=== PATIENT | female | born 1940 | race Caucasian/White ===

== ENCOUNTER 2016-10-20 21:18 | Inpatient (IN) | payer MEDICARE ==
[~2016-10-20] VITALS: Ht 172.7 cm; Wt 92.0 kg
--- NOTE | ~2016-10-20 | HP ---
PATIENT'S NAME: MARIELOS RICHARDS [facility] AGE: 76 Y [address] 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 She complains of pain isolated to the right hip. Abrasions have been noted at her right elbow, but she denies pain in her right elbow and notes that she has full painless unrestricted active range of motion of the right elbow. She denies numbness or paresthesias in her right foot. She denies history of preexisting pain at the right hip. At baseline, she lives independently and functions independently. She never requires an assistive device for ambulation. She denies head trauma or loss of consciousness. She denies pain in her other 3 extremities as a result of this injury. ACTIVE MEDICAL PROBLEMS: Hypertension, stage III renal insufficiency (attributed to her hypertension). MEDICATIONS: As listed on her chart. ALLERGIES: NO KNOWN DRUG ALLERGIES. PAST SURGICAL HISTORY: Appendectomy, cholecystectomy, removal of unspecified cyst from the right side of her cervical spine, and D and C. REVIEW OF SYSTEMS: She denies history of diabetes mellitus. She denies history of deep venous thrombosis or pulmonary embolism. She denies head trauma or loss of consciousness. SOCIAL HISTORY: Lives independently. Lives alone. Does not require an assistive device for ambulation. PHYSICAL EXAMINATION: GENERAL: Alert, oriented, well-hydrated, well-nourished, pleasant cooperative female. She is a reliable historian. She is in no distress. PATIENT'S NAME: MARIELOS RICHARDS [facility] AGE: 76 Y [address] ROOM: [place] [address] LOCATION: CU ADMIT DATE: 10/20/2016 History & Physical DISCHARGE DATE: FAMILY PHYSICIAN: June Carreno MD ATTENDING PHYSICIAN: June Carreno MUSCULOSKELETAL: There are superficial abrasions over the right elbow. There is moderate protuberance at the olecranon. The patient states this is chronic. There is no tenderness at the olecranon. There is painless unrestricted active range of motion of the right elbow with no crepitation. The right lower extremity is shortened and externally rotated versus the left. There is pain with passive range of motion of the right hip. There is tenderness at the right hip. There is no pain with passive range of motion or tenderness at the left hip. There is no tenderness at either knee. She is able to actively dorsiflex and plantar flex the right ankle with 4/5 motor strength. 1+ dorsalis pedis pulse at the right foot. Sensation to light touch is intact throughout the right foot. Painless unrestricted active range of motion of the cervical spine. RADIOGRAPHS: Three views of the right hip demonstrate an intertrochanteric fracture. The fracture appears somewhat transversely oriented. There is no hardware. There is no lytic lesion. There is moderate displacement. The fracture does not appear to extend into the subtrochanteric region or the femoral neck. There is no significant right hip joint space narrowing. IMPRESSION: Right hip intertrochanteric fracture, renal insufficiency, and hypertension. RECOMMENDATIONS: I have discussed the etiology and natural history of this condition. I have discussed the operative and nonoperative options. I have recommended open reduction and internal fixation with an intramedullary device. I have explained there is an outside chance that a plate and screw construct may be warranted. I have discussed the technical aspects of surgery as well as risks and limitations thereof. We have specifically reviewed risks and implications of infection, deep venous thrombosis, pulmonary embolism, mortality, malunion, nonunion, neurovascular complications, blood transfusion risks, and the potential need for salvage with hip arthroplasty. The patient has been placed at bedrest. Mechanical DVT prophylaxis and incentive spirometry have been initiated. I have consulted the patient's primary care physician, Dr. Carreno, for preoperative medical clearance, preoperative medical optimization, and perioperative medical management. I have emphasized the need for close clinical and radiographic followup and the need for restricted weightbearing for at least 2 months. All of the PATIENT'S NAME: MARIELOS RICHARDS [facility] AGE: 76 Y [address] ROOM: [id number] [place] [id number] LOCATION: [facility] ADMIT DATE: 10/20/2016 History & Physical DISCHARGE DATE: FAMILY PHYSICIAN: June Carreno MD ATTENDING PHYSICIAN: June Carreno patient's questions and concerns were answered to her satisfaction. MD CY RAMIREZ/modl /[id number] D: [id number] T: [id number] HISTORY & PHYSICAL
--- NOTE | ~2016-10-20 | CON ---
PATIENT'S NAME: MARIELOS CHNA [facility] AGE: 76 Y [address] ROOM: [place] [address] LOCATION: GICU ADMIT DATE: 10/20/2016 Consultation DISCHARGE DATE: FAMILY PHYSICIAN: June Carreno MD ATTENDING PHYSICIAN: June Carreno REFERRING PHYSICIAN: Benita Umanzor CHIEF COMPLAINT: Right hip pain. HISTORY OF PRESENT ILLNESS: The patient is a 76-year-old female, who presents to the emergency room after having a fall at home while taking out the trash and landing on her right hip. She developed pain in the right hip area instantaneously and was unable to bear weight on it. She has called the ambulance and the ambulance arrived to get her and brought her to [facility] for further evaluation. She had no head injury. No loss of consciousness. She did have some right elbow pain, but no other associated injuries. She was living at home and functioning independently prior to this. PAST MEDICAL HISTORY: 1. Chronic kidney disease, stage 3. 2. Hypertension. 3. Depression. 4. History of menopausal syndrome. 5. Anxiety. 6. Hyperlipidemia. 7. Osteopenia. MEDICATIONS: 1. Lipitor 20 mg daily. 2. Prilosec 40 mg daily. 3. Restasis eyedrops daily. 4. Zoloft 100 mg daily. 5. Amlodipine 10 mg daily. 6. Lasix 40 mg daily. 7. Iron 325 mg daily. 8. Losartan 50 mg daily. 9. Vitamin D3 daily. 10. Multivitamin daily. PAST SURGICAL HISTORY: Status post cholecystectomy and status post cyst removal. PATIENT'S NAME: MARIELOS CHAN [facility] AGE: 76 Y [address] ROOM: [id number] [place] [address] LOCATION: GICU ADMIT DATE: 10/20/2016 Consultation DISCHARGE DATE: FAMILY PHYSICIAN: June Carreno MD ATTENDING PHYSICIAN: June Carreno ALLERGIES: NO MEDICAL ALLERGIES. REVIEW OF SYSTEMS: GENERAL: No recent weight gain or weight loss. HEENT: Eyes: Vision normal. Hearing is normal. Oropharynx: Denies any odynophagia or dysphagia. CARDIOVASCULAR: No chest pain. No palpitations. RESPIRATORY: No shortness breath, PND, or orthopnea. GASTROINTESTINAL: No constipation, diarrhea, or dark black stools. PSYCHIATRIC: History of depression and anxiety. FAMILY HISTORY: Positive for heart disease, hypertension, and thyroid disorders. SOCIAL HISTORY: The patient does not use alcohol, does not smoke, and does have caffeine on a daily basis. PHYSICAL EXAMINATION: VITAL SIGNS: Weight 97.5, blood pressure is 205/102 initially now is normalized. Respirations 20, pulse 82, temperature 98.1, and O2 saturation 98%. GENERAL: A pleasant female, appears to be in mild distress, secondary to pain. HEENT: Head is atraumatic and normocephalic. Oropharynx is clear. NECK: There is no adenopathy. HEART: Regular rate and rhythm. LUNGS: Clear to auscultation bilaterally. ABDOMEN: Bowel sounds are positive. Soft, nontender, and nondistended. EXTREMITIES: No cyanosis, clubbing, or edema. Obvious pain with movement of her right lower extremity. NEUROLOGIC: Alert and oriented x3. No focal deficits. LABORATORY DATA AND X-RAY DATA: EKG shows no acute abnormalities. X-ray of the right leg and hip shows right intertrochanteric fracture present with displacement noted. CBC unremarkable. CMP: Potassium of 3.5 and creatinine 1.8. GFR of 27, otherwise unremarkable. ASSESSMENT AND PLAN: 1. Right hip intertrochanteric fracture. The patient will be under the care of Dr. Do for surgery. She is okay to proceed with the surgery. She will be followed by Dr. Carreno in the a.m. 2. Chronic renal disease, it is stable at this point. No current changes. 3. Hypertension, stable. PATIENT'S NAME: MARIELOS CHAN [facility] AGE: 76 Y [address] ROOM: [id number] [place], [place] [address] LOCATION: [facility] ADMIT DATE: 10/20/2016 Consultation DISCHARGE DATE: FAMILY PHYSICIAN: June Carreno MD ATTENDING PHYSICIAN: June Carreno 4. Depression and anxiety, stable. 5. Hyperlipidemia, stable. LUIZA BUI MD CSM/noreen /[id number] d: 10/21/16 1333 t: 10/28/16 2223, CONSULTATION REPORT
--- NOTE | ~2016-10-20 | OR ---
PATIENT'S NAME: MARIELOS CHAN [facility] AGE: 76 Y [address] ROOM: [place] [address] LOCATION: [facility] ADMIT DATE: 10/20/2016 OR/Procedure Report DISCHARGE DATE: FAMILY PHYSICIAN: June Carreno MD ATTENDING PHYSICIAN: June Carreno SURGEON: Blanco Do MD LIBRARY MEDIA ASSISTANT: David Velázquez, PRODUCTION ASSEMBLY OPERATOR/[facility]. DATE OF PROCEDURE: 10/21/2016 PREOPERATIVE DIAGNOSIS: Intertrochanteric fracture, right hip. POSTOPERATIVE DIAGNOSIS: Intertrochanteric fracture, right hip. PROCEDURE PERFORMED: Open reduction and internal fixation of right hip intertrochanteric fracture with intramedullary device (gamma nail). ANESTHESIA: Spinal. ESTIMATED BLOOD LOSS: Less than 100 cubic centimeters. IMPLANTS: [employer]s 11 mm x 125-degree 235 mm right trochanteric femoral nail with 38 mm distal interlocking screw and 95 mm lag screw. DRAINS: None. SPECIMEN: None. COMPLICATIONS: None. INDICATION FOR PROCEDURE: Please refer to my separately dictated consultation note. The patient presents with a right hip intertrochanteric fracture. Operative and nonoperative options have been reviewed. Potential adverse sequelae of the injury itself have been reviewed. Risks, benefits, limitations, and indications for surgery have been thoroughly reviewed and informed consent has been granted. We have specifically reviewed risks and implications of the following: infection, malunion, nonunion, deep venous thrombosis, pulmonary embolism, mortality, neurovascular complications, blood transfusion risks, decubitus ulcer formation, pneumonia, avascular necrosis, and the potential need for further surgery (including the potential need for salvage with hip hemiarthroplasty versus total hip arthroplasty). We have discussed the necessity for 2 months of restricted weightbearing postoperatively. A preoperative internal medicine consultation has been obtained, and the patient has been medically cleared for surgery. DESCRIPTION OF PROCEDURE: The patient was positioned supine on the fracture PATIENT'S NAME: MARIELOS CHAN [facility] AGE: 76 Y [address] ROOM: [place] [address] LOCATION: [facility] ADMIT DATE: 10/20/2016 OR/Procedure Report DISCHARGE DATE: FAMILY PHYSICIAN: June Carreno MD ATTENDING PHYSICIAN: June Carreno table after administration of anesthesia and prophylactic antibiotics. The correct side and anticipated procedure were confirmed via a verbal timeout including myself, the processing associate, and the circulating nurse. A well-padded groin post was placed. Both feet and ankles were well padded. The left foot was placed into a stirrup-type leg murphy. The right foot was placed into a traction boot. Under fluoroscopic guidance, gentle longitudinal traction and internal rotation were applied across the fracture site through the right foot until a suitable reduction had been confirmed under AP and lateral fluoroscopic imaging. The lateral aspect of the right hip and thigh were scrubbed, prepped, and draped with vigilant sterile technique. The tip of the right greater trochanter was approached through a 5 cm direct lateral longitudinal incision. The iliotibial band was sharply divided longitudinally in line with the overlying skin incision. The tip of the right greater trochanter was palpated, and a cannulated awl was utilized to access the intramedullary canal of the proximal femur through the tip of the right greater trochanter. A ball tipped guidewire was placed through the awl and across the fracture site under fluoroscopic guidance, and the awl was subsequently removed. The cannulated entrance reamer was utilized through the appropriate soft tissue guide. The gamma nail was seated to the appropriate depth over the guidewire, and the guidewire was extracted. Fluoroscopic imaging confirmed appropriate position of the gamma nail. The outrigger guide and guide cannula were subsequently utilized to place a threaded-tipped guidewire centrally within the right femoral head and neck through a separate direct lateral 2 cm longitudinal incision. Appropriate position of the guidewire was confirmed under AP and lateral fluoroscopic imaging. Appropriate depth for the lag screw was measured. The cannulated reamer was set to the appropriate depth and fully seated through the appropriate soft tissue guide. The lag screw was seated to the appropriate depth under AP and lateral fluoroscopic guidance. The anti-rotational set screw was deployed. The outrigger guide and cannula were subsequently utilized to place the distal interlocking screw through a separate 5 mm direct lateral longitudinal incision. AP, lateral, and oblique fluoroscopic imaging of the right hip and right proximal femur confirmed appropriate position of all hardware and maintenance of an appropriate reduction of the fracture. Each of the 3 incisions was thoroughly irrigated with bacteriostatic saline PATIENT'S NAME: MARIELOS CHAN [facility] AGE: 76 Y [address] ROOM: [facility] [place], [place] [address] LOCATION: [facility] ADMIT DATE: 10/20/2016 OR/Procedure Report DISCHARGE DATE: FAMILY PHYSICIAN: June Carreno MD ATTENDING PHYSICIAN: June Carreno. The fascia was closed with simple deep interrupted 0 Vicryl sutures. Each of the incisions was closed with superficial buried interrupted 2-0 Vicryl sutures and surgical traci. The dressings consisted of Xeroform gauze, sterile gauze, and occlusive tape. There were no complications. The patient was carefully transferred off the fracture table and transported to the postanesthesia care unit in stable condition. MD CY RAMIREZ/noreen /[id number] d: 10/21/16 2138 t: 10/31/16 0754, OPERATIVE SUMMARY
--- NOTE | ~2016-10-20 | DS ---
PATIENT'S NAME: MARIELOS CHAN [facility] AGE: 76 Y [address] ROOM: [place] [address] LOCATION: [facility] ADMIT DATE: 10/20/2016 Discharge Summary DISCHARGE DATE: 10/24/2016 FAMILY PHYSICIAN: June Carreno MD ATTENDING PHYSICIAN: June Carreno PRIMARY DIAGNOSIS: Intertrochanteric fracture of the right hip. SECONDARY DIAGNOSES: 1. Hypertension. 2. Chronic kidney disease stage 3. PROCEDURE PERFORMED: Open reduction and internal fixation of the right hip intertrochanteric fracture with intramedullary device. 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 We have been asked to treat her right hip fracture. Please refer to her consultation note as well as her admission history and physical. HOSPITAL COURSE: The patient underwent the above specified procedure on 10/21/2016 without complication. Spinal anesthesia was utilized. She received 24 hours of perioperative prophylactic antibiotics. She remained hemodynamically stable and neurovascularly intact throughout her entire hospital course. Her postoperative deep vein thrombosis prophylaxis consisted of Xarelto, early mobilization, and pneumatic compression devices. She received daily physical therapy for gait training and transfer training and progressed decently in physical therapy. On her date of discharge, October 24, 2016, incisions of the hip were healing well and showed no signs of infection. DISPOSITION: [facility]. DISCHARGE DIET: Regular diet. DISCHARGE ACTIVITY: She is to be strict toe-touch weightbearing of her right lower extremity. There is to be no right hip strengthening or range of motion exercises. There is to be no dressing changes. She is to notify Dr. Rowland immediately if she experiences increased pain, fevers, chills, erythema, or drainage. DISCHARGE MEDICATIONS: 1. Xarelto 10 mg, one tab p.o. daily, for 12 days for postoperative DVT prophylaxis. 2. [place] 5/325 mg 1 to 2 tabs p.o. every 4 hours p.r.n. for pain. PATIENT'S NAME: MARIELOS CHAN [facility] AGE: 76 Y [address] ROOM: [place] [address] LOCATION: [facility] ADMIT DATE: 10/20/2016 Discharge Summary DISCHARGE DATE: 10/24/2016 FAMILY PHYSICIAN: June Carreno MD ATTENDING PHYSICIAN: June Carreno DISCHARGE INSTRUCTIONS: She was then instructed to continue all her other preadmission medications as instructed by her Internal Medicine doctor. FOLLOWUP APPOINTMENT: Followup appointment is to be with Dr. Rowland's Office on 10/31/2016 for her initial postoperative evaluation with right hip x-rays at that time. STEFAN PERALES PA-C FOR RAMY ROWLAND MD SMW/modl /[id number] d: 11/08/162012 t: 11/22/16 1150, DISCHARGE SUMMARY
--- NOTE | ~2016-10-20 | ER ---
PATIENT'S NAME: MARIELOS CHAN [facility] AGE: 76 Y [address] ROOM: [id number] [place], [place] [id number] LOCATION: GI ADMIT DATE: 10/20/2016 ER/Outpatient Report DISCHARGE DATE: FAMILY PHYSICIAN: June Carreno MD ATTENDING PHYSICIAN: June Carreno Time of Arrival: 2118 hours. Time of Exam: 2126 hours. CHIEF COMPLAINT: Right hip pain. HISTORY OF PRESENT ILLNESS: The patient states just prior to arrival she was taking out the trash when she twisted and fell landing on her right hip. She has pain in the right hip area and is unable to bear weight on it. She did arrive per [facility] ambulance. She has a pillow under the right knee area to give the leg some support. IV was started en route. She denies any other injury with the fall, did not hit her head, did not have any loss of consciousness. ALLERGIES: SHE HAS NO KNOWN ALLERGIES. CURRENT MEDICATIONS: On the chart and reviewed by me. PAST MEDICAL HISTORY: Hypertension, elevated cholesterol, and chronic kidney disease. PAST SURGERIES: Cholecystectomy, D and C, and cervical biopsy. SOCIAL HISTORY: She lives in her own home. Denies use of tobacco, drugs, or alcohol. REVIEW OF SYSTEMS: All negative other than those mentioned in the HPI. PHYSICAL EXAMINATION: VITAL SIGNS: She weighed 97.5 kg. Blood pressure initially was 205/102, pulse of 82, respirations 20, temperature of 98.1 tympanic, and O2 saturation was 98% on room air. GENERAL: She is awake, alert, and oriented x4. SKIN: Hurst, warm, and dry. RESPIRATIONS: Even and nonlabored. Lung sounds are clear throughout. PATIENT'S NAME: MARIELOS CHAN [facility] AGE: 76 Y [address] ROOM: [id number] [place] [address] LOCATION: GICU ADMIT DATE: 10/20/2016 ER/Outpatient Report DISCHARGE DATE: FAMILY PHYSICIAN: June Carreno MD ATTENDING PHYSICIAN: June Carreno HEART: Regular rate and rhythm. ABDOMEN: Soft and nondistended. Bowel sounds are present. MUSCULOSKELETAL: She does have an abrasion to the right elbow area. Positive radial and ulnar pulses. Right hip area is tender to palpate. She has positive pedal pulses. DIAGNOSTIC DATA: X-rays of the hip were completed, does show a supra-trochanteric fracture on the right. X-ray of the right elbow was completed, no bony abnormality is seen. EKG is completed, EKG is within normal limits. CBC is within normal limits. Chem panel: Sodium is 141, potassium is 3.5, chloride is 106, her BUN is 23, creatinine is 1.8, and GFR was 27. The patient asked Dr. Do to be notified, he was here in the ER seeing another patient. He did agree to see the patient. He plans to admit her and repair the hip in the morning. I did call and talk to Dr. Sukhdeep Lee who is on-call for Dr. Carreno. IMPRESSION: Right hip fracture. PLAN: The patient will be admitted for care of Dr. Carreno and Dr. Do with plans for surgery in the morning. The patient is aware of the plan of care. SCOTT HOGAN APRN FOR MD KARINE VALADEZ/noreen /[id number] d: 10/21/16 0117 t: 11/06/16 0550, OUTPATIENT REPORT
[~2016-10-20 21:18] MED LIST changes: -CALCIUM500 MG PO; -LASIX40 MG PO; -LIPITOR20 M1 PO; -LOMOTIL1 TAB PO; -[UNRECOGNIZED DRUG - OTHER] PO
[2016-10-20 23:00] LABS: BASOPHIL % 0.3 %; EOSINOPHIL % 0.3 %; HEMATOCRIT 35.6 % (33.0-46.0); HEMOGLOBIN 11.6 g/dL (10.0-15.0); IMMATURE GRANULOCYTE # 0.1 K/uL (0.0-0.3); LYMPHOCYTE # 0.5 K/uL (0.8-4.0); LYMPHOCYTE % 5.5 %; MCH 29.6 pg (27.0-34.0); MCHC 32.6 gm/dL (32.0-36.5); MCV 90.8 fl (83.0-98.0); MONOCYTE # 0.5 K/uL (0.0-1.0); NEUTROPHIL # (ANC) 8.7 K/uL (1.8-7.8); NEUTROPHIL % 87.9 %; NRBC % 0 /100WBC (0-0.00); PLATELET COUNT 172 K/uL (150-450); RBC 3.92 M/uL (3.50-5.50); RDW-CV 15.4 % (11.9-14.6); WBC 9.8 K/uL (4.0-11.0)
[2016-10-20 23:10] LABS: PROTIME 10.5 SECONDS (9.8-11.4); PTT 29 SECONDS (25-32)
[2016-10-20 23:17] LABS: ALBUMIN 3.5 gm/dL (3.5-5.0); ANION GAP 11.5 (10.0-19.0); CALCIUM 8.7 mg/dL (8.5-10.5); CREATININE 1.8 mg/dL (0.5-1.1); POTASSIUM 3.5 mMol/L (3.7-5.1); TOTAL BILIRUBIN 0.4 mg/dL (0.0-1.5); TOTAL PROTEIN 7.5 g/dL (6.0-8.4)
[2016-10-20 23:23] LABS: BILIRUBIN URINE NEGATIVE (NEGATIVE); BLOOD URINE 25 /UL (NEGATIVE); COLOR URINE YELLOW (YELLOW); GLUCOSE URINE NEGATIVE (NEGATIVE); KETONE URINE NEGATIVE (NEGATIVE); LEUKOCYTES URINE NEGATIVE /UL (NEGATIVE); NITRITE URINE NEGATIVE (NEGATIVE); PROTEIN URINE 15 mg/dL (NEGATIVE); TURBIDITY URINE CLEAR (CLEAR); UROBILINOGEN URINE NORMAL (NORMAL)
[2016-10-21 00:19] LABS: BACTERIA URINE NEGATIVE (NEGATIVE); EPITHELIAL URINE 0-2 #/HPF (NEGATIVE); WBC URINE NEGATIVE #/HPF (NEGATIVE)
--- NOTE | 2016-10-21 02:19 | NUR ---
Patient is a 76 year old female who fell at home and broke her right hip. She has a history of HTN, high cholesterol, depression, chronic kidney disease - stage III. She has no known allergies. Patient came up from ER with an IV in her left hand running D5NS at 80ml/hr and a patrick intact. Her immunizations are up to date. She has an abrasion to her right elbow and right knee. In ER she had labs drawn, EKG, chest xray, hip xray. Patient is hypertensive and states it is related to being depressed and worried about her son.
--- NOTE | 2016-10-21 04:42 | NUR ---
Significant Event: A/OX3. STATES SLIGHT N/T IN RIGHT FOOT. RIGHT FOOT WEAKNESS AND PAIN. ABLE TO WIGGLE TOES AND 1+ PULSES. TRACE EDEMA IN LOWER EXTREMITIES BILATERALLY. SR WITH HEART RATE IN 70S. HYPERTENSIVE - SBPs 150S-180S. PAIN TO RIGHT HIP RATES 5-7/10. MORPHINE GIVEN X2. IV TO LEFT HAND RUNNING D5NS AT 80ML/HR. AFEBRILE. BENJAMIN INTACT DRAINING YELLOW URINE. FRANKI HOSE ON, FOOT PUMPS ON. INCENTIVE SPIROMETER Q1 WHILE AWAKE. LUNGS CLEAR AND DIMINISHED ON ROOM AIR. DRESSING TO RIGHT ELBOW SKIN TEAR C/D/I. BEDREST. NPO AT MIDNIGHT. PATIENT UPSET DUE TO NOT BEING ABLE TO BE NEAR SON WHO IS EMOTIONALLY UNSTABLE. Follow up: SURGERY THIS AM
--- NOTE | 2016-10-21 08:34 | NUR ---
ROUTINE FX HIP PATHWAY CONSULT NOTED. APPETITE GOOD, PRE-ALB WNL. BMI IN OBESE RANGE. BASED ON CURRENT DATA, NO NUTRITION-RELATED DX IDENTIFIED. WILL ASSIST NEEDED.
[2016-10-21] MEDS ORDERED: CALCIUM500 MG PO (09:41)
[2016-10-21] MEDS ORDERED: LASIX40 MG PO (09:42)
[2016-10-21] MEDS ORDERED: LIPITOR20 M1 PO (09:42)
[2016-10-21] MEDS ORDERED: LOMOTIL1 TAB PO (09:43)
[2016-10-21] MEDS ORDERED: [UNRECOGNIZED DRUG - OTHER] PO (09:44)
--- NOTE | 2016-10-21 12:02 | NUR ---
Introduced self to Isabella. She was getting ready to leave for surgery. Will tou[place] base with her tomorrow. Chart has been reviewed.
--- NOTE | 2016-10-21 14:06 | NUR ---
Significant Event: A/OX3. DENIES N/T. FOLLOWS COMMANDS. ABLE TO MAKE NEEDS KNOWN. VSS. AFEBRILE. CAP REFILL < 3 SEC. RLE WARM TO TOUCH. WIGGLES TOES. MODERATE EQUAL STRENGTH THROUGHOUT. ROOM AIR WITH SATS IN THE HIGH 90S. LS CLEAR AND SLIGHTLY DIMINISHED. NPO. BENJAMIN IN PLACE. 400 ML OUT. BS ACTIVE X4. NO BM THIS SHIFT. SKIN TEAR TO RIGHT ELBOW. DRESSING CHANGED THIS SHIFT. SCATTERED BRUISING. R) HAND PIV INFUSING WITH NO COMPLICATIONS. MORPHINE 2 MG IVP GIVEN PRN PAIN. BEDREST. TO OR AT 1102. REPORT CALLED AND GIVEN TO IGNACIO AT 1400. Follow up:
--- NOTE | 2016-10-21 18:43 | NUR ---
Significant Event: From PACU at 1745. Dressings C/D/I. Ice at all times. Schaffer patent. Numbness at upper thighs. Denies pain. Follow up:
--- NOTE | 2016-10-22 03:53 | NUR ---
Significant Event:Alert/oriented x3. Dangled on side of bed earlier, did not get in chair. Saline lock Left hand. Schaffer patent - drained 575 mls dark yellow urine. Valium 2256; [place] 1 tab at 1913, 2023, 341; Morphine 2 mg IVP at 2023, 2203, 341. Dressing C/D/I. Skin tear to r elbow, had dressing on earlier, removed due to it slipping down her arm. CSM WNL. VSS, hypertensive at times with SBP in 150s. Scattered bruising. 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 2 LPM O2 per nasal cannula kept sats in 90s. Follow up:
[2016-10-22 05:29] LABS: HEMATOCRIT 29.1 % (33.0-46.0); HEMOGLOBIN 9.3 g/dL (10.0-15.0)
[2016-10-22 11:08] LABS: ANION GAP 10.4 (10.0-19.0); CALCIUM 8.2 mg/dL (8.5-10.5); CREATININE 1.5 mg/dL (0.5-1.1); POTASSIUM 3.4 mMol/L (3.7-5.1)
--- NOTE | 2016-10-22 13:50 | NUR ---
Introduced self/role to patient. We visited about rehab options. If she was not able to go home, prefers to go to [facility] where her son is at. I will go a head and start a referral there. Added my name to her marker board. Put orders on her chart and started a packet. Note on chart about [facility] referral to be made. 1415 Called [facility] #[phone] and spoke to Evelyn. Pre-auth will be needed, she will see if they will do that. Also will need local doctor for them.
--- NOTE | 2016-10-22 15:44 | NUR ---
Significant Event: AOx3. VSS. CSM WNL. TTWB to R) leg. PT stood at bedside and reports that patient did poorly. Need to use full lift to transfer. Schaffer intact draining yellow urine. Dressing C/D/I. Dupo and valium fo rpain. Follow up:
--- NOTE | 2016-10-23 03:07 | NUR ---
Significant Event: Dressing is clean, dry and intact. CSM WNL. Full lift. Schaffer catheter. Harmon at 0215. On 1L of oxygen nasal cannula. TTWB. Valium at 2134. R) elbow bandaids. Follow up:
[2016-10-23 05:19] LABS: BASOPHIL % 0.4 %; EOSINOPHIL % 0.5 %; HEMATOCRIT 28.2 % (33.0-46.0); HEMOGLOBIN 9.1 g/dL (10.0-15.0); IMMATURE GRANULOCYTE # 0.1 K/uL (0.0-0.3); IMMATURE GRANULOCYTE % 0.8 %; LYMPHOCYTE # 0.8 K/uL (0.8-4.0); MCH 29.2 pg (27.0-34.0); MCHC 32.3 gm/dL (32.0-36.5); MCV 90.4 fl (83.0-98.0); MONOCYTE # 0.9 K/uL (0.0-1.0); MONOCYTE % 10.6 %; MPV 11.3 fl (9.4-12.4); NEUTROPHIL # (ANC) 6.6 K/uL (1.8-7.8); NEUTROPHIL % 78.7 %; NRBC % 0 /100WBC (0-0.00); PLATELET COUNT 146 K/uL (150-450); RBC 3.12 M/uL (3.50-5.50); RDW-CV 15.3 % (11.9-14.6); WBC 8.3 K/uL (4.0-11.0)
[2016-10-23 05:35] LABS: ANION GAP 11.4 (10.0-19.0); CALCIUM 7.9 mg/dL (8.5-10.5); CREATININE 1.4 mg/dL (0.5-1.1); POTASSIUM 3.4 mMol/L (3.7-5.1)
--- NOTE | 2016-10-23 09:05 | NUR ---
Evelyn with [facility] called, wanted to know if Dr. Tello would be fine with patient? 919 Followed up with patient. Dr. Tello is fine. Went over financial information for SNF coverage. Called Evelyn back. Plan discharge for 1100 either by ambulance or their van. 924 Spoke to Jan. Van is fine as long as they have a elevated leg pedal. [address] Carreno #[phone] about discharge location and time tomorrow. Left a message for Evelyn #[phone], will plan for their van. Do we need to do a doc to doc with Dr. Tello and if so I need that number? Make sure to have a elevated foot pedal. Nurse number placed on sticky note on chart and PASRR in the packet.
--- NOTE | 2016-10-23 18:05 | NUR ---
Significant Event: DID SIT ON EDGE OF BED WITH ASSIST OF 3 PEOPLE. IS FULL LIFT...MEPIPLEX DRSG D/I TO THIGH..HAD NORCO 1 TAB X4 LAST AT 1640, HAD VALIUM 2.5 MG 1 TAB X3 LAST AT 1640. CSM GOOD...WEEPY AT TIMES... Follow up:
--- NOTE | 2016-10-24 04:36 | NUR ---
Shift Summary: Patient is unable to ambulate due to not enought upper body strength to ambulate and maintain TTWB to right leg. Is a max 2 assist to transfer. Use lift. Patrick has not been removed. 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 Patient having good pain control using 1 norco and 2.5mg Valium about every 4 hr. Last dose at 0335. Tolerating a regular diet well.
[2016-10-24 05:51] LABS: HEMATOCRIT 27.7 % (33.0-46.0); HEMOGLOBIN 9.1 g/dL (10.0-15.0)
--- NOTE | 2016-10-24 09:00 | NUR ---
Faxed orders to [facility] #[phone]. Followed up with patient, no further questions or needs. She is calling her neighbor to bring up clothes.
--- NOTE | 2016-10-24 11:30 | NUR ---
Pt alert and oriented. She has dressing Rt hip, mepilex that is dry and intact. It is water proof. Edema of hip and thigh. CSM Rt leg ENL. Has patrick catheter with 400 ml out this shift. Pt uses IS. Ate breakfast and tolerated well. [place] po x2 this shift last at 1130 for pain rated at 4 Rt hip. Pt is lift transfer. She is TTWB Rt. Has been weakness upper body. She hasn't had BM and refused laxatives. Pt states passes gas well she said and not uncomfortable. Hgb 9.1 and was same yesterday. Pt likes the valium 2.5 mg with norco. Last time was at 0815. Pt VS are stable. Belongings with pt
== END 2016-10-24 11:36 | DRG 481 ==
LOC: GACC 21:18 → GICU 23:24 → G3N 10-21 13:56
PROVIDERS: Family Medicine; Nurse Practitioner Family; Orthopaedic Surgery; ADMIT Family Medicine
PROC: 0QS604Z Reposition Right Upper Femur with Internal Fixation Device, Open Approach (ICD-10-PCS; principal; 2016-10-20)
DX: S72.141A Displaced intertrochanteric fracture of right femur, initial encounter for closed fracture (principal); N18.4 Chronic kidney disease, stage 4 (severe); W18.30XA Fall on same level, unspecified, initial encounter; Y93.89 Activity, other specified; Y92.018 Other place in single-family (private) house as the place of occurrence of the external cause; I12.9 Hypertensive chronic kidney disease with stage 1 through stage 4 chronic kidney disease, or unspecified chronic kidney disease; F32.9 Major depressive disorder, single episode, unspecified; F41.9 Anxiety disorder, unspecified
CPT/HCPCS: C1713; J0690; J2001; J2270; J3010; J7030; J7042

== ENCOUNTER → 2016-10-20 | Outpatient (CLI) | payer MEDICARE ==
[~2016-10-20] MED LIST: CALCIUM500 MG PO; CLARITIN10 MG PO; IRON65 PO; KLOR-CON M1010 MEQ PO; LASIX40 MG PO; LIPITOR20 M1 PO; LOMOTIL1 TAB PO; LOSARTAN POTASS50 MG PO; MULTI VITAMIN1 EACH PO; OMACOR PO; PRILOSEC40 MG PO; RESTASIS1 EACH OPHTH; TYLENOL EXTRA500 MG PO; VITAMIN D-32000 UNIT PO; ZOLOFT100 M1 PO; [UNRECOGNIZED DRUG - OTHER] PO
== END | disposition disaster alternative care site (69) ==
LOC: GAMB 21:00
DX: S79.911A Unspecified injury of right hip, initial encounter (principal); M25.551 Pain in right hip; K21.9 Gastro-esophageal reflux disease without esophagitis; N18.3 Chronic kidney disease, stage 3 (moderate); I10 Essential (primary) hypertension; F32.9 Major depressive disorder, single episode, unspecified; Z79.899 Other long term (current) drug therapy; W01.0XXA Fall on same level from slipping, tripping and stumbling without subsequent striking against object, initial encounter
CPT/HCPCS: A0425; A0429